=== PATIENT | female | born 1975 | race Caucasian/White ===

== ENCOUNTER → 2017-09-02 16:44 | Outpatient (CLI) | payer MEDICAID, SELFPAY ==
[2017-09-06 03:07] LABS: HSV 1 By PCR Negative (Negative)
[2017-09-06 08:46] LABS: HSV 2 By PCR Positive (Negative)
== END ==
PROVIDERS: Visit Provider Obstetrics & Gynecology
DX: Z11.3 Encounter for screening for infections with a predominantly sexual mode of transmission (principal)
CPT/HCPCS: 87529